=== PATIENT | male | born 1990 | race African-American/Black ===

== ENCOUNTER 2016-10-13 06:36 | Emergency (ER) | payer OTHER ==
[2016-10-13 06:47] VITALS: BP 135/77; PULSE 68; TEMP 98; BMI 22.8
--- NOTE | 2016-10-13 07:12 | PDOC ---
*Physical Exam - Vital Signs Last Vital Signs Temp Pulse Resp BP Pulse Ox 98 F 68 16 135/77 100 10/13/16 06:44 10/13/16 06:44 10/13/16 06:44 10/13/16 06:44 10/13/16 06:44 *DC/Admit/Observation/Transfer Diagnosis at time of Disposition: Sprain of iliolumbar ligament - Discharge Dispostion Disposition: HOME Condition at time of disposition: Good - Referrals Referrals: Evelyn Acosta MD [Primary Care Provider] - - Patient Instructions Printed Discharge Instructions: DI for Back Strain or Sprain Additional Instructions: You most likely have iliolumbar ligament sprain in your back You should use icy hot and warm compress. If pain persists or worsens or if you develop weakness or numbness, return to ER or see a spine orthopedist.
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
--- NOTE | 2016-10-13 08:46 | PDOC ---
Attending Attestation - Resident Resident Name: Karlee Osunaudmila - ED Attending Attestation I have performed the following: I have examined & evaluated the patient, The case was reviewed & discussed with the resident, I agree w/resident's findings & plan, Exceptions are as noted - HPI HPI: 10/13/16 08:45 The patient is a 26-year-old male with no significant past medical history complaining of back pain. He denies lower extremity weakness or paresthesias. He denies bladder or bowel incontinence or retention. He denies fever, urinary symptoms. - Physicial Exam PE: 10/13/16 08:45 He is well-appearing and in no acute distress No sensory or motor abnormalities and lower extremities - Medical Decision Making 10/13/16 08:45 Clinical impression: Musculoskeletal back pain
== END 2016-10-13 07:52 | disposition home or self-care (01) ==
LOC: JER 06:36
DX: S33.5XXA Sprain of ligaments of lumbar spine, initial encounter (principal); V86.41XA Person injured while boarding or alighting from ambulance or fire engine, initial encounter; Y93.89 Activity, other specified; Y92.89 Other specified places as the place of occurrence of the external cause; Y99.0 Civilian activity done for income or pay
CPT/HCPCS: 99281-25

== ENCOUNTER 2017-06-03 13:57 | Emergency (ER) | payer OTHER ==
[2017-06-03 14:08] VITALS: BP 114/61; PULSE 86; TEMP 98.2; BMI 21.4
--- NOTE | 2017-06-03 14:49 | PDOC ---
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 HISTORY OF PRESENT ILLNESS: The patient was pulling hose and felt he strained his upper back/shoulder muscle on the left side. He states it hurts more with movement, especially when he moves his left arm across the front of his body. He denies fall onto outstretched hand, numbness/tingling in affected extremity. Vital signs on arrival are within normal limits. REVIEW OF SYSTEMS: GENERAL/CONSTITUTIONAL: No fever/chills. No weakness. No weight change. MUSCULOSKELETAL: +left shoulder pain. No neck or back pain. SKIN: No rash or easy bruising. NEUROLOGIC: No headache, vertigo, loss of consciousness, or loss of sensation. PHYSICAL EXAM: VITAL_SIGNS: within normal limits GENERAL_APPEARANCE: alert, cooperative, no obvious discomfort. MENTAL_STATUS: speech clear, oriented X 3, responds appropriately to questions. NEURO: motor intact and sensory intact in injured extremity. EXTREMITIES: good pulse in injured extremity. Pain reproduced with palpation along left medial and lateral scapula. Full ROM of left arm and shoulder. Minimal pain reproduced with movement of left arm across front of body towards right side of body. No pain with palpation of left AC joint. No clavicle crepitus or deformities b/l SKIN: warm, dry, good color. Past History - Past Medical History Allergies/Adverse Reactions: Allergies Allergy/AdvReac Type Severity Reaction Status Date / Time No Known Allergies Allergy Verified 06/03/17 14:06 Home Medications: Ambulatory Orders NK [No Known Home Medication] 07/18/14 COPD: No - Surgical History Abdominal Surgery: Yes (hernia repair 10/29/13) - Immunization History Immunization Up to Date: Yes - Suicide/Smoking/Psychosocial Hx Smoking History: Never smoked Have you smoked in the past 12 months: No Hx Alcohol Use: No Drug/Substance Use Hx: No Substance Use Type: None Hx Substance Use Treatment: No *Physical Exam - Vital Signs Last Vital Signs Temp Pulse Resp BP Pulse Ox 98.2 F 86 18 114/61 100 06/03/17 14:05 06/03/17 14:05 06/03/17 14:05 06/03/17 14:05 06/03/17 14:05 Medical Decision Making - Medical Decision Making A/P: 27 y/o male with left shoulder strain while at work. Will give Motrin and discharge with supportive care instructions. The patient verbalizes understanding of all instructions, has no further questions and is awaiting discharge. *DC/Admit/Observation/Transfer Diagnosis at time of Disposition: Left shoulder strain Qualifiers: Encounter type: initial encounter Qualified Code(s): S46.912A - Strain of unspecified muscle, fascia and tendon at shoulder and upper arm level, left arm , initial encounter - Discharge Dispostion Disposition: HOME Condition at time of disposition: Good - Referrals Referrals: Evelyn Acosta MD [Primary Care Provider] - - Patient Instructions Printed Discharge Instructions: How To Perform RICE (Rest, Ice, Compress, Elevate), DI for Shoulder Sprain Additional Instructions: Discharge Instructions: -You strained your left shoulder muscles -Please take Motrin for pain every 6 hours with food if needed -Alternate heat and ice to area to promote healing -Stretch affected area multiple times per day -Return to the ER with any worsening or concerning symptoms - Post Discharge Activity
[2017-06-03] MEDS ORDERED: IBUPROFEN 600 MG TABLET (FP) PO ONE ×2 (14:55→14:59)
== END 2017-06-03 15:03 | disposition home or self-care (01) ==
LOC: JERFT 13:57 → JER 13:57
DX: S46.812A Strain of other muscles, fascia and tendons at shoulder and upper arm level, left arm, initial encounter (principal); X50.0XXA Overexertion from strenuous movement or load, initial encounter; Y93.89 Activity, other specified; Y92.89 Other specified places as the place of occurrence of the external cause; Y99.0 Civilian activity done for income or pay
CPT/HCPCS: 99282-25

== ENCOUNTER 2018-07-01 20:19 | Emergency (ER) | payer OTHER ==
[2018-07-01 20:22] VITALS: BP 126/69; PULSE 90; TEMP 98.1; BMI 21.4
[2018-07-01] MEDS ORDERED: IBUPROFEN 400 MG TABLET (FP) PO ONE ×2 (21:12→21:15)
--- NOTE | 2018-07-01 21:16 | PDOC ---
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 Report increased with to toe with ambulation and swelling to right great toe. Denies any other symptoms Timing/Duration: 4-6 hours Past History - Past Medical History Allergies/Adverse Reactions: Allergies Allergy/AdvReac Type Severity Reaction Status Date / Time No Known Allergies Allergy Verified 07/01/18 20:23 Home Medications: Ambulatory Orders Naproxen 500 mg PO BID PRN #20 tablet 07/01/18 COPD: No - Surgical History Abdominal Surgery: Yes (hernia repair 10/29/13) - Immunization History Immunization Up to Date: Yes - Suicide/Smoking/Psychosocial Hx Smoking History: Never smoked Have you smoked in the past 12 months: No Hx Alcohol Use: No Drug/Substance Use Hx: No Substance Use Type: None Hx Substance Use Treatment: No Review of Systems - Review of Systems Able to Perform ROS?: Yes Is the patient limited Bulgarian proficient: No Constitutional: No: Weakness HEENTM: No: Symptoms Reported Respiratory: No: Symptoms reported Cardiac (ROS): No: Symptoms Reported ABD/GI: No: Symptoms Reported Musculoskeletal: Yes: See HPI, Joint Swelling (right great toe), Muscle Pain ( right toe pain). No: Muscle Weakness All Other Systems: Reviewed and Negative *Physical Exam - Vital Signs Last Vital Signs Temp Pulse Resp BP Pulse Ox 98.1 F 90 18 126/69 100 07/01/18 20:20 07/01/18 20:20 07/01/18 20:20 07/01/18 20:20 07/01/18 20:20 - Physical Exam Comments: 07/01/18 21:48 GENERAL: Well developed, well nourished. Awake and alert. No acute distress. CARDIOVASCULAR: Regular rate and rhythm. No murmurs, rubs, or gallops. PULMONARY: No evidence of respiratory distress. Lungs clear to auscultation bilaterally. No wheezing, rales or rhonchi. MUSCULOSKELETAL : Moderate tenderness to MCP and proximal phalange of right great toe with mild swelling to phalange of right rectal No bony deformities NEUROLOGICAL: Alert, awake, appropriate. No motor deficits in the lower extremities. Gait is normal without ataxia. PSYCHIATRIC: Cooperative. Good eye contact. Appropriate mood and affect. General Appearance: Yes: Nourished, Appropriately Dressed, Mild Distress Moderate Sedation - Procedure Monitoring Vital Signs: Procedure Monitoring Vital Signs Temperature 98.1 F 07/01/18 20:20 Pulse Rate 90 07/01/18 20:20 Respiratory Rate 18 07/01/18 20:20 Blood Pressure 126/69 07/01/18 20:20 O2 Sat by Pulse Oximetry (%) 100 07/01/18 20:20 ED Treatment Course - RADIOLOGY Radiology Studies Ordered: Category Date Time Status TOE(S) RIGHT [RAD] Stat Radiology 07/01/18 20:43 Taken Medical Decision Making - Medical Decision Making 07/01/18 21:49 Patient with no past medical history present with complaint of pain to right great toe status post stepping out of the truck in twisting foot on the ground area Exam significant for moderate tenderness to right great toe with mild swelling and no visible deformity. X-ray of right great toe and foot shows no acute fracture or pathology. Symptoms likely toes and foot sprain. Motrin 800 mg by mouth given for pain. Patient is stable for discharge on NSAIDs with advised to rest for the next 2 days and follow-up with podiatry as needed *DC/Admit/Observation/Transfer Diagnosis at time of Disposition: Contusion of right great toe without damage to nail Qualifiers: Encounter type: initial encounter Qualified Code(s): S90.111A - Contusion of right great toe without damage to nail, initial encounter Injury of right foot including toes Qualifiers: Encounter type: initial encounter Qualified Code(s): S99.921A - Unspecified injury of right foot, initial encounter - Discharge Dispostion Disposition: HOME Condition at time of disposition: Stable Decision to Admit order: No - Prescriptions Prescriptions: Naproxen 500 mg PO BID PRN #20 tablet PRN Reason: foot pain - Referrals Referrals: Evelyn Acosta MD [Primary Care Provider] - - Patient Instructions Printed Discharge Instructions: DI for Foot Sprain Additional Instructions: x-rays of right foot/ toe shows no acute fracture. take prescribed medication as needed for pain. rest right foot and keep foot elevated. soak foot in sosa salt water to help with swelling. - Post Discharge Activity Forms/Work/School Notes: Back to Work
== END 2018-07-01 21:18 | disposition home or self-care (01) ==
LOC: JERFT 20:19
DX: S90.111A Contusion of right great toe without damage to nail, initial encounter (principal); V86.41XA Person injured while boarding or alighting from ambulance or fire engine, initial encounter; Y93.89 Activity, other specified; Y92.89 Other specified places as the place of occurrence of the external cause; Y99.0 Civilian activity done for income or pay
CPT/HCPCS: 73660-TC-FY; 99281-25

== ENCOUNTER 2019-02-04 16:12 | Emergency (ER) | payer OTHER ==
--- NOTE | 2019-02-04 16:24 | PDOC ---
Rapid Medical Evaluation Time Seen by Provider: 02/04/19 16:21 Medical Evaluation: Allergies Allergy/AdvReac Type Severity Reaction Status Date / Time No Known Allergies Allergy Verified 07/01/18 20:23 02/04/19 16:21 I have performed a brief in-person evaluation of this patient. The patient presents with a chief complaint of: Something flew into his left eye 1-2 hours ago while at work. Works for [employer] d[employer]. No vision changes. He tried flushing his eye but still feels the FB. Unsure what it is but thinks it is dust. No contact lens use. Pertinent physical exam findings: L eye with minimal conjunctival erythema The patient will proceed to the ED for further evaluation. 02/04/19 16:24 Discharge Disposition - Diagnosis Irritation of left eye - Referrals - Patient Instructions - Post Discharge Activity
[2019-02-04 16:25] VITALS: BP 111/57; PULSE 56; TEMP 97.2; BMI 20.7
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
== END 2019-02-04 17:17 | disposition home or self-care (01) ==
LOC: JERFT 16:12
DX: S05.02XA Injury of conjunctiva and corneal abrasion without foreign body, left eye, initial encounter (principal); X58.XXXA Exposure to other specified factors, initial encounter; Y93.89 Activity, other specified; Y92.89 Other specified places as the place of occurrence of the external cause; Y99.0 Civilian activity done for income or pay
CPT/HCPCS: 99281-25

== ENCOUNTER 2019-11-02 23:13 | Emergency (ER) | payer OTHER ==
[2019-11-02 23:38] VITALS: BMI 20.7
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
[2019-11-02] MEDS ORDERED: ACETAMINOPHEN 500 MG TABLET (FP) PO ONE (23:54)
[2019-11-03] MEDS ORDERED: ACETAMINOPHEN 325 MG TABLET (FP) ONE (00:04)
[2019-11-03 00:49] LABS: ARTERIAL BLD GAS O2 SATURATION 99.1 mmHg (95-98); ARTERIAL BLOOD GAS PO2 173.4 mmHg (80-100); ARTERIAL BLOOD GAS pH 7.358 (7.350-7.450)
[2019-11-03 00:55] LABS: ALLENS TEST POSITIVE
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
[2019-11-03 02:03] VITALS: BP 104/69; PULSE 63; TEMP 97.6
== END 2019-11-03 01:45 | disposition home or self-care (01) ==
LOC: JER 23:13
DX: R42 Dizziness and giddiness (principal); R51 Headache
CPT/HCPCS: 36600; 82375; 82803; 99283-25

== ENCOUNTER 2020-03-31 09:51 | Emergency (ER) | payer OTHER ==
[2020-03-31 10:04] VITALS: BP 110/61; PULSE 81; TEMP 98.5; BMI 21.2
== END 2020-03-31 10:48 | disposition home or self-care (01) ==
LOC: JERFT 09:51 → JER 09:51 → JERFT 10:48
DX: S90.32XA Contusion of left foot, initial encounter (principal)
CPT/HCPCS: 73630-TC-LT; 99283-25

== ENCOUNTER 2021-04-18 05:00 | Emergency (ER) | payer OTHER ==
[2021-04-18 05:03] VITALS: BP 109/61; PULSE 78; TEMP 98.2; BMI 26.6
[2021-04-18] MEDS ORDERED: IBUPROFEN 400 MG TABLET (FP) PO ONE ×2 (05:21→05:37)
== END 2021-04-18 06:13 | disposition home or self-care (01) ==
LOC: JER 05:00
DX: S39.012A Strain of muscle, fascia and tendon of lower back, initial encounter (principal); X50.0XXA Overexertion from strenuous movement or load, initial encounter
CPT/HCPCS: 99283-25

== ENCOUNTER 2022-05-12 19:33 | Emergency (ER) | payer OTHER ==
[2022-05-12 19:54] VITALS: BP 108/63; PULSE 85; RESP 18; TEMP 98.4; BMI 20.9
[2022-05-12] MEDS ORDERED: LIDOCAINE 5% TOPICAL PATCH TP ONE (20:22)
[2022-05-12] MEDS ORDERED: ACETAMINOPHEN 500 MG TABLET (FP) PO ONE (20:24)
[2022-05-12] MEDS ORDERED: LIDOCAINE 5% TOPICAL PATCH ONE (20:24)
[2022-05-12] MEDS ORDERED: ACETAMINOPHEN 500 MG TABLET (FP) ONE (20:26)
[2022-05-12] MEDS ORDERED: traMADol HCL 50 MG TABLET PO ONE (20:49)
[2022-05-12] MEDS ORDERED: LIDOCAINE PATCH REMOVAL MC SCH (22:00)
== END 2022-05-12 21:58 | disposition home or self-care (01) ==
LOC: JER 19:33
DX: M54.18 Radiculopathy, sacral and sacrococcygeal region (principal); W01.0XXA Fall on same level from slipping, tripping and stumbling without subsequent striking against object, initial encounter
CPT/HCPCS: 72220-TC-FY; 93005; 93010; 99284-25

== ENCOUNTER 2023-03-03 00:59 | Emergency (ER) | payer OTHER ==
[2023-03-03 01:03] VITALS: BP 119/83; PULSE 75; RESP 18; TEMP 98.3; BMI 20.9
[2023-03-03] MEDS ORDERED: IBUPROFEN 400 MG TABLET (FP) PO ONE ×2 (01:56→02:02)
[2023-03-03] MEDS ORDERED: ACETAMINOPHEN 325 MG TABLET (FP) PO ONE (01:56)
[2023-03-03] MEDS ORDERED: ACETAMINOPHEN 325 MG TABLET (FP) ONE (02:01)
== END 2023-03-03 04:00 | disposition home or self-care (01) ==
LOC: JER 00:59
DX: S93.401A Sprain of unspecified ligament of right ankle, initial encounter (principal); M25.571 Pain in right ankle and joints of right foot; X50.1XXA Overexertion from prolonged static or awkward postures, initial encounter
CPT/HCPCS: 73610-TC-RT-FY; 73630-TC-RT-FY; 99283-25

== ENCOUNTER 2024-01-15 11:00 | Emergency (ER) | payer OTHER ==
[2024-01-15 11:26] VITALS: BP 121/72; PULSE 88; RESP 17; TEMP 98.4; BMI 20.3
[2024-01-15] MEDS ORDERED: IBUPROFEN 400 MG TABLET (FP) PO ONE (11:32)
[2024-01-15] MEDS: IBUPROFEN 400 MG TABLET (FP) PO ONE (11:43)
== END 2024-01-15 12:33 | disposition home or self-care (01) ==
LOC: JERFT 11:00
DX: S69.92XA Unspecified injury of left wrist, hand and finger(s), initial encounter (principal); W20.8XXA Other cause of strike by thrown, projected or falling object, initial encounter
CPT/HCPCS: 73130-TC-LT-FY; 99283-25